=== PATIENT | female | born 1950 | race African-American/Black ===

== ENCOUNTER 2023-08-02 21:17 | Observation (INO) | payer OTHER ==
[2023-08-02 21:52] VITALS: BMI 21.4
[2023-08-02 22:25] LABS: BASO % 0.6 % (0-2.0); EOS % 1.8 % (0-4.5); HEMATOCRIT 40.5 % (32.4-45.2); HEMOGLOBIN 13.9 GM/dL (10.7-15.3); LYMPH % 29.1 % (8-40); MCH 31.9 pg (25.7-33.7); MCHC 34.2 g/dl (32.0-36.0); MEAN CELL VOLUME 93.3 fl (80-96); MEAN PLT VOLUME 8.5 fl (7.5-11.1); MONO % 5.3 % (3.8-10.2); NEUT % 63.2 % (42.8-82.8); PLATELET COUNT 218 10^3/uL (134-434); RBC 4.34 M/mm3 (3.60-5.2); RDW 13.1 % (11.6-15.6); WHITE BLOOD COUNT 8.9 K/mm3 (4.0-10.0)
[2023-08-02 22:34] LABS: INR 1.03 (0.83-1.09)
[2023-08-02 22:37] LABS: ACTIVATED PTT 27.6 SECONDS (25.2-36.5)
[2023-08-02 22:45] LABS: POTASSIUM 4.4 mmol/L (3.5-5.1)
[2023-08-02 22:47] LABS: CALCIUM 9.7 mg/dL (8.5-10.1)
[2023-08-02 22:48] LABS: ALBUMIN 3.7 g/dl (3.4-5.0); BLOOD UREA NITROGEN 13.9 mg/dL (7-18)
[2023-08-02 22:51] LABS: CREATININE 0.9 mg/dL (0.55-1.3)
[2023-08-02 22:52] LABS: BILIRUBIN,TOTAL 0.5 mg/dL (0.2-1); TOT PROT 7.8 g/dl (6.4-8.2)
[2023-08-03] MEDS: levETIRAcetam 250 MG TABLET PO ONE (00:16)
[2023-08-03 02:24] LABS: EPI CELLS 6 /uL (0-25.1); HYALINE CASTS 0 /uL (0-3.1); PH,URINE 7.5 (5.0-8.0); URINE APPEARANCE CLEAR; URINE BACTERIA 25 /uL (0-1359); URINE BILIRUBIN NEGATIVE (NEGATIVE); URINE COLOR YELLOW; URINE GLUCOSE (UA) NEGATIVE (NEGATIVE); URINE KETONE NEGATIVE (NEGATIVE); URINE LEUK ESTERASE 1+ (NEGATIVE); URINE NITRITE NEGATIVE (NEGATIVE); URINE PROTEIN NEGATIVE (NEGATIVE); URINE RBC 6 /uL (0-23.9); URINE UROBILINOGEN 0.2 mg/dL (0.2-1.0); URINE WBC 9 /uL (0-25.8)
[2023-08-03 04:55] VITALS: RESP 16
[2023-08-03 07:40] LABS: INR 1.07 (0.83-1.09); PROTHROMBIN TIME (PATIENT) 12.4 SEC (9.7-13.0)
[2023-08-03 07:43] LABS: HEMATOCRIT 40.4 % (32.4-45.2); HEMOGLOBIN 13.7 GM/dL (10.7-15.3); MCH 31.8 pg (25.7-33.7); MCHC 33.9 g/dl (32.0-36.0); MEAN CELL VOLUME 93.7 fl (80-96); MEAN PLT VOLUME 8.7 fl (7.5-11.1); PLATELET COUNT 175 10^3/uL (134-434); RBC 4.32 M/mm3 (3.60-5.2); RDW 13.2 % (11.6-15.6)
[2023-08-03 08:04] LABS: CALCIUM 9.3 mg/dL (8.5-10.1); MAGNESIUM 1.9 mg/dL (1.8-2.4)
[2023-08-03 08:05] LABS: CREATININE 0.8 mg/dL (0.55-1.3)
[2023-08-03 08:07] LABS: BLOOD UREA NITROGEN 11.9 mg/dL (7-18)
[2023-08-03 08:08] LABS: ALBUMIN 3.6 g/dl (3.4-5.0)
[2023-08-03 08:10] LABS: PHOSPHOROUS 3.8 mg/dL (2.5-4.9)
[2023-08-03 08:11] LABS: BILIRUBIN,TOTAL 0.6 mg/dL (0.2-1)
[2023-08-03 08:13] LABS: TOT PROT 7.6 g/dl (6.4-8.2)
[2023-08-03 08:35] VITALS: BP 125/72; TEMP 97.9
[2023-08-03 09:02] VITALS: PULSE 90
[2023-08-03] MEDS: ENOXAPARIN NA (PORCINE) 40 MG/0.4 ML DISP.SYRIN SQ SCH (10:32)
[2023-08-03] MEDS: levETIRAcetam 500 MG/5 ML INJECTION VIAL IVPB SCH (10:34)
[2023-08-03] MEDS: levETIRAcetam 500 MG/5 ML ORAL SOLUTION (UNIT-DOSE CUPS) PO SCH (11:10)
[2023-08-03] MEDS ORDERED: ATORVASTATIN CA 40 MG TABLET (FP) PO SCH (22:00)
== END 2023-08-03 15:19 | disposition home or self-care (01) ==
LOC: JER 21:17 → JERBED 23:33
PROVIDERS: ADMIT Internal Medicine; ATTEND Internal Medicine
DX: R55 Syncope and collapse (principal); E78.5 Hyperlipidemia, unspecified; R73.03 Prediabetes; R56.9 Unspecified convulsions; Z86.73 Personal history of transient ischemic attack (TIA), and cerebral infarction without residual deficits
CPT/HCPCS: 0241U-QW; 36415; 70450-TC; 71045-TC-FY; 80053; 80061; 80177; 81003; 83036; 83735; 84100; 84484; 85025; 85027; 85610; 85730; 87086; 93005; 93010; 99285-25; G0378